=== PATIENT | male | born 1975 | race Two or more races ===

== ENCOUNTER 2017-01-14 12:26 | Emergency (ER) | payer OTHER ==
[2017-01-14 12:35] VITALS: BP 156/97; PULSE 107; TEMP 99.3; BMI 29.8
[2017-01-14] MEDS ORDERED: SODIUM CHLORIDE 1,000 ML IV STA (13:10)
[2017-01-14] MEDS ORDERED: KETOROLAC TROMETHAMINE 30 MG/1 ML VIAL IVPUSH ONE (13:10)
[2017-01-14] MEDS ORDERED: METOCLOPRAMIDE HCL INJECTION 10 MG/2 ML VIAL IVPUSH ONE (13:10)
--- NOTE | 2017-01-14 13:16 | PDOC ---
Attending Attestation - Resident Resident Name: Jeremiah Perez - ED Attending Attestation I have performed the following: I have examined & evaluated the patient, The case was reviewed & discussed with the resident, I agree w/resident's findings & plan, Exceptions are as noted - HPI HPI: 01/16/17 00:19 41yo male with paraspinal neck pain and walsh. - Physicial Exam PE: 01/16/17 00:20 Gen: aaox3, nad heent: PERRL, EOMI, MMM Neck: supple, no meningeal signs, paraspinal ttp, no midline ttp heart: +s1s2 reg lungs: cta b/l abd: soft, nt/nd +bs Ext: no c/c/e neuro: cn ii-xii grossly intact, no focal deficits - Medical Decision Making 01/14/17 13:16 I, Dr. Tegan Marr, DO, attest that this document has been prepared under my direction and personally reviewed by me in its entirety. I further attest, that it accurately reflects all work, treatment, procedures and medical decision -making performed by me. 01/14/17 14:00 a/p: 41yo male with paraspinal neck pain from driving in the car and a walsh - no meningeal signs, no fevers, neuro intact, described walsh as tension - will medicate and re-eval. pt does not need labs or ct head given nonfocal neuro exam and slow onset. pt does not have risk factors for SAH and no infectious etiology. Will monitor and reassess
[2017-01-14] MEDS ORDERED: METOCLOPRAMIDE HCL INJECTION 10 MG/2 ML VIAL ONE (13:18)
[2017-01-14] MEDS ORDERED: KETOROLAC TROMETHAMINE 30 MG/1 ML VIAL ONE (13:18)
--- NOTE | 2017-01-14 13:23 | PDOC ---
History of Present Illness - General Chief Complaint: Headache Stated Complaint: HEADACHES Time Seen by Provider: 01/14/17 12:48 History Source: Patient Exam Limitations: No Limitations - History of Present Illness Initial Comments: 01/14/17 13:14 Patient is a 41M with no significant medical history here today complaining of an intermittent headache for the past month. He states he gets a few headaches per day that get better with ibuprofen. He describes the onset of each headache as gradual. He came in today because his headache has been getting worse and has gone from located in just the forehead to the back of the neck. He says his headache gets worse with flexion of his head, neck and back. Denies fevers, chills, nausea, vomiting and any sort of relation with onset and timing of the day. He denies a history of hypertension, eye changes, weakness, and confusion. He says that he was diagnosed with a cold/flu a few weeks back, but denies rhinorrhea, face pain and toothache. Past History - Past Medical History Allergies/Adverse Reactions: Allergies Allergy/AdvReac Type Severity Reaction Status Date / Time No Known Allergies Allergy Verified 01/14/17 12:35 Home Medications: Ambulatory Orders NK [No Known Home Medication] 01/14/17 COPD: No Other medical history: NONE - Surgical History Abdominal Surgery: Yes (HERNIA) - Suicide/Smoking/Psychosocial Hx Smoking History: Never smoked Hx Alcohol Use: Yes (SOCIAL) Drug/Substance Use Hx: No Review of Systems - Review of Systems Comments:: 01/14/17 13:26 GENERAL/CONSTITUTIONAL: No fever or chills. No weakness. HEAD, EYES, EARS, NOSE AND THROAT: No change in vision. No ear pain or discharge. No sore throat. No toothache. CARDIOVASCULAR: No chest pain or shortness of breath RESPIRATORY: No cough, wheezing, or hemoptysis. GASTROINTESTINAL: No nausea, vomiting, diarrhea or constipation. GENITOURINARY: No dysuria, frequency, or change in urination. MUSCULOSKELETAL: No joint or muscle swelling or pain. Positive for lower back and neck pain. SKIN: No rash NEUROLOGIC: Positive for headache. Negative for vertigo, loss of consciousness, or change in strength/sensation. ENDOCRINE: No increased thirst. No abnormal weight change HEMATOLOGIC/LYMPHATIC: No anemia, easy bleeding, or history of blood clots. ALLERGIC/IMMUNOLOGIC: No hives or skin allergy. *Physical Exam - Vital Signs Last Vital Signs Temp Pulse Resp BP Pulse Ox 99.3 F 107 H 20 156/97 96 01/14/17 12:32 01/14/17 12:32 01/14/17 12:32 01/14/17 12:32 01/14/17 12:32 - Physical Exam Comments: 01/14/17 13:27 GENERAL: Awake, alert, and fully oriented, in no acute distress HEAD: No signs of trauma, normocephalic, atraumatic EYES: PERRLA, EOMI, sclera anicteric, conjunctiva clear ENT: Auricles normal inspection, hearing grossly normal, nares patent, oropharynx clear without exudates. Moist mucosa. No facial tenderness. Erythematous nasal passageway. NECK: Normal ROM, supple, no lymphadenopathy, JVD, or masses, no midline tenderness, mildly tender on lateral aspect of neck BACK: Mildly tender in paraspinal regions, no midline tenderness LUNGS: No distress, speaks full sentences, clear to auscultation bilaterally HEART: Regular rate and rhythm, normal S1 and S2, no murmurs, rubs or gallops, peripheral pulses normal and equal bilaterally. ABDOMEN: Soft, nontender, normoactive bowel sounds. No guarding, no rebound. No masses EXTREMITIES: Normal inspection, Normal range of motion, no edema. No clubbing or cyanosis. NEUROLOGICAL: Cranial nerves II through XII grossly intact. Normal speech, normal gait, no focal sensorimotor deficits, normal cerebellar function, negative rhomberg SKIN: Warm, Dry, normal turgor, 1x1cm soft tissue mass noted on upper right back Medical Decision Making - Medical Decision Making 01/14/17 13:29 41M with no PMH here today with headache . Tachycardic, sbp 158. Vital signs otherwise stable and normal. No red flags for headache or back pain. Differential diagnosis includes, but is not limited to: tension headache, chronic sinusitis. Will treat with fluids, reglan, benadryl, and toradol. Will re-evaluate and dispo. 01/14/17 14:14 Patient is improved. Wants to go home. Given return precautions and told to follow up with PCP. Discharged to home. *DC/Admit/Observation/Transfer Diagnosis at time of Disposition: Headache - Discharge Dispostion Disposition: HOME Condition at time of disposition: Good Admit: No - Referrals Referrals: Zoe Swanson MD [Primary Care Provider] - - Patient Instructions Printed Discharge Instructions: DI for Headache Additional Instructions: Please see your primary care doctor in the next 7 days. Please return if you have any new, worsening or concerning symptoms. -Dr Perez - Post Discharge Activity
== END 2017-01-14 14:31 | disposition home or self-care (01) ==
LOC: JER 12:26
PROC: 3E033GC Introduction of Other Therapeutic Substance into Peripheral Vein, Percutaneous Approach (ICD-10-PCS; principal; 2017-01-14)
PROC: 3E0333Z Introduction of Anti-inflammatory into Peripheral Vein, Percutaneous Approach (ICD-10-PCS; 2017-01-14)
PROC: 3E0337Z Introduction of Electrolytic and Water Balance Substance into Peripheral Vein, Percutaneous Approach (ICD-10-PCS; 2017-01-14)
DX: R51 Headache (principal)
CPT/HCPCS: 96361; 96374; 96375; 99282-25